=== PATIENT | male | born 1955 | race Caucasian/White ===

== ENCOUNTER 2018-10-28 11:25 | Inpatient (IN) | payer MEDICARE ==
[2018-10-28] MEDS ORDERED: NITROGLYCERIN SL TABS 0.4 MG TAB SUBLINGUAL STA ×2 (11:56)
[2018-10-28] MEDS ORDERED: NITROGLYCERIN OINT 1 INCH/GM PACKET TOPICAL STA (11:56)
--- NOTE | 2018-10-28 12:12 | ED ---
General Adult HPI - General Chief complaint: Shortness of Breath Stated complaint: SOB, High BP Time Seen by Provider: 10/28/18 11:25 Source: patient, RN notes reviewed Mode of arrival: ambulatory Limitations: no limitations - History of Present Illness Initial comments: This is a 62-year-old male who presents emergency Department who presents emergency department stating over the last 2 weeks he has had some chest pressure with shortness of breath. Patient states it usually occurs while he is doing some activity and usually subsides when he stops activity. Patient decided to go to [facility] today to have them evaluate him and they sent him over to us because he is having significantly high blood pressure and chest pressure. Patient currently has no symptoms. Patient states he has no radiation of the chest pressure ever patient denies any diaphoretic episodes of her patient denies any nausea vomiting ever. Patient denies any recent fever chills. Patient denies abdominal pain patient denies nausea vomiting diarrhea. There is no calf tenderness no leg swelling - Related Data Home Medications Medication Instructions Recorded Confirmed Aspirin EC [Ecotrin Low Dose] 162 mg PO DAILY PRN 10/28/18 10/28/18 Allergies Allergy/AdvReac Type Severity Reaction Status Date / Time No Known Allergies Allergy Verified 10/28/18 11:43 Review of Systems ROS Statement: Those systems with pertinent positive or pertinent negative responses have been documented in the HPI. ROS Other: All systems not noted in ROS Statement are negative. Past Medical History Past Medical History: Hyperlipidemia, Hypertension History of Any Multi-Drug Resistant Organisms: None Reported Past Surgical History: No Surgical Hx Reported Past Psychological History: No Psychological Hx Reported Smoking Status: Former smoker Past Alcohol Use History: Occasional Past Drug Use History: None Reported General Exam - General Exam Comments Initial Comments: GENERAL: Patient is well-developed and well-nourished. Patient is nontoxic and well- hydrated and is in mild distress. ENT: Neck is soft and supple. No significant lymphadenopathy is noted. Oropharynx is clear. Moist mucous membranes. Neck has full range of motion without eliciting any pain. EYES: The sclera were anicteric and conjunctiva were pink and moist. Extraocular movements were intact and pupils were equal round and reactive to light. Eyelids were unremarkable. PULMONARY: Unlabored respirations. Good breath sounds bilaterally. No audible rales rhonchi or wheezing was noted. CARDIOVASCULAR: Irregular rate and rhythm ABDOMEN: Soft and nontender with normal bowel sounds. No palpable organomegaly was noted. There is no palpable pulsatile mass. SKIN: Skin is clear with no lesions or rashes and otherwise unremarkable. NEUROLOGIC: Patient is alert and oriented x3. Cranial nerves II through XII are grossly intact. Motor and sensory are also intact. Normal speech, volume and content. Symmetrical smile. MUSCULOSKELETAL: Normal extremities with adequate strength and full range of motion. No lower extremity swelling or edema. No calf tenderness. LYMPHATICS: No significant lymphadenopathy is noted PSYCHIATRIC: Normal psychiatric evaluation. Limitations: no limitations Course Vital Signs 10/28/18 10/28/18 10/28/18 11:27 12:12 12:49 Temperature 97.8 F Pulse Rate 96 116 H 99 Respiratory 22 18 16 Rate Blood Pressure 212/109 190/126 179/117 O2 Sat by Pulse 92 L 97 96 Oximetry 10/28/18 10/28/18 13:00 13:30 Temperature Pulse Rate 98 98 Respiratory 18 18 Rate Blood Pressure 187/116 164/96 O2 Sat by Pulse 97 96 Oximetry Medical Decision Making - Medical Decision Making EKG shows atrial fibrillation at 100 bpm QRS is 84 QT interval 06 QTC is 394. Patient's EKG shows no ST segment elevation or depression. Chest x-ray shows patient has mild congestive heart failure Because of the patient's new atrial fib we started him on heparin. Also the patient's troponin was mildly elevated. Patient had some CHF psychiatric the patient Lasix as well. [facility] I wrote admitting orders I consult cardiology I continued the heparin Lasix aspirin and Nitropaste on the floor. - Lab Data Result diagrams: 10/28/18 12:13 10/28/18 12:13 Lab Results 10/28/18 10/28/18 10/28/18 Range/Units 12:13 12:13 12:13 WBC 9.5 (3.8-10.6) k/uL RBC 4.95 (4.30-5.90) m/uL Hgb 14.9 (13.0-17.5) gm/dL Hct 44.1 (39.0-53.0) % MCV 89.1 (80.0-100.0) fL MCH 30.1 (25.0-35.0) pg MCHC 33.8 (31.0-37.0) g/dL RDW 16.2 H (11.5-15.5) % Plt Count 199 (150-450) k/uL Neutrophils % 82 % Lymphocytes % 11 % Monocytes % 4 % Eosinophils % 1 % Basophils % 0 % Neutrophils # 7.8 H (1.3-7.7) k/uL Lymphocytes # 1.1 (1.0-4.8) k/uL Monocytes # 0.4 (0-1.0) k/uL Eosinophils # 0.1 (0-0.7) k/uL Basophils # 0.0 (0-0.2) k/uL Poikilocytosis Slight Anisocytosis Slight PT 9.8 (9.0-12.0) sec INR 0.9 (<1.2) APTT 23.6 (22.0-30.0) sec Sodium 137 (137-145) mmol/L Potassium 4.5 (3.5-5.1) mmol/L Chloride 104 (98-107) mmol/L Carbon Dioxide 24 (22-30) mmol/L Anion Gap 9 mmol/L BUN 21 H (9-20) mg/dL Creatinine 1.22 (0.66-1.25) mg/dL Est GFR (CKD-EPI)AfAm 72 (>60 ml/min/1.73 sqM) Est GFR (CKD-EPI)NonAf 63 (>60 ml/min/1.73 sqM) Glucose 187 H (74-99) mg/dL Calcium 8.9 (8.4-10.2) mg/dL Magnesium 1.8 (1.6-2.3) mg/dL Total Bilirubin 1.6 H (0.2-1.3) mg/dL AST 44 (17-59) U/L ALT 69 (21-72) U/L Alkaline Phosphatase 87 (38-126) U/L Troponin I (0.000-0.034) ng/mL Total Protein 6.7 (6.3-8.2) g/dL Albumin 4.0 (3.5-5.0) g/dL 10/28/18 Range/Units 12:13 WBC (3.8-10.6) k/uL RBC (4.30-5.90) m/uL Hgb (13.0-17.5) gm/dL Hct (39.0-53.0) % MCV (80.0-100.0) fL MCH (25.0-35.0) pg MCHC (31.0-37.0) g/dL RDW (11.5-15.5) % Plt Count (150-450) k/uL Neutrophils % % Lymphocytes % % Monocytes % % Eosinophils % % Basophils % % Neutrophils # (1.3-7.7) k/uL Lymphocytes # (1.0-4.8) k/uL Monocytes # (0-1.0) k/uL Eosinophils # (0-0.7) k/uL Basophils # (0-0.2) k/uL Poikilocytosis Anisocytosis PT (9.0-12.0) sec INR (<1.2) APTT (22.0-30.0) sec Sodium (137-145) mmol/L Potassium (3.5-5.1) mmol/L Chloride (98-107) mmol/L Carbon Dioxide (22-30) mmol/L Anion Gap mmol/L BUN (9-20) mg/dL Creatinine (0.66-1.25) mg/dL Est GFR (CKD-EPI)AfAm (>60 ml/min/1.73 sqM) Est GFR (CKD-EPI)NonAf (>60 ml/min/1.73 sqM) Glucose (74-99) mg/dL Calcium (8.4-10.2) mg/dL Magnesium (1.6-2.3) mg/dL Total Bilirubin (0.2-1.3) mg/dL AST (17-59) U/L ALT (21-72) U/L Alkaline Phosphatase (38-126) U/L Troponin I 0.061 H* (0.000-0.034) ng/mL Total Protein (6.3-8.2) g/dL Albumin (3.5-5.0) g/dL Critical Care Time Critical Care Time: Yes Total Critical Care Time: 35 Disposition Clinical Impression: New onset a-fib, Elevated troponin, Pulmonary edema, Hypertensive urgency Disposition: ADMITTED IP TO THIS [facility] Referrals: None,Stated [Primary Care Provider] - 1-2 days Time of Disposition: 14:04
[2018-10-28] MEDS: ASPIRIN 81 MG PO STA ×2 (12:14→12:15)
[2018-10-28 12:31] LABS: INR 0.9 (<1.2); Partial Thromboplastin Time 23.6 sec (22.0-30.0); Prothrombin Time 9.8 sec (9.0-12.0)
[2018-10-28 12:32] LABS: Calcium 8.9 mg/dL (8.4-10.2); Magnesium 1.8 mg/dL (1.6-2.3); Potassium 4.5 mmol/L (3.5-5.1); Total Bilirubin 1.6 mg/dL (0.2-1.3); Total Protein 6.7 g/dL (6.3-8.2)
[2018-10-28 12:45] LABS: Anisocytosis Slight; Basophils % (A) 0 %; Eosinophils # (A) 0.1 k/uL (0-0.7); Eosinophils % (A) 1 %; HCT 44.1 % (39.0-53.0); HGB 14.9 gm/dL (13.0-17.5); Lymphocytes # (A) 1.1 k/uL (1.0-4.8); Lymphocytes % (A) 11 %; MCH 30.1 pg (25.0-35.0); MCHC 33.8 g/dL (31.0-37.0); MCV 89.1 fL (80.0-100.0); Mean Platelet Volume 8.8; Monocytes # (A) 0.4 k/uL (0-1.0); Monocytes % (A) 4 %; Neutrophils # (A) 7.8 k/uL (1.3-7.7); Neutrophils % (A) 82 %; Platelet Count 199 k/uL (150-450); Poikilocytosis Slight; RBC 4.95 m/uL (4.30-5.90); RDW 16.2 % (11.5-15.5); WBC 9.5 k/uL (3.8-10.6)
--- NOTE | 2018-10-28 12:59 | XR ---
EXAMINATION TYPE: XR chest 2V DATE OF EXAM: 10/28/2018 COMPARISON: None HISTORY: 62-year-old male with shortness of breath and chest pain TECHNIQUE: PA and lateral views FINDINGS: Heart borderline enlarged. Diffuse interstitial and vascular prominence. Small effusions on the later al view. No velia consolidation seen at this time. IMPRESSION: 1. Borderline cardiomegaly with diffuse interstitial changes. Correlate for mild to moderate CHF with pulmonary vascular congestion. 2. Small bilateral pleural effusions with adjacent atelectasis and/or consolidation seen on the later al view.
[2018-10-28] MEDS ORDERED: HEPARIN SODIUM,PORCINE 5,000 UNIT/ML 1 ML VIAL IV ONE (13:31)
[2018-10-28] MEDS: HEPARIN SOD,PORK IN 0.45% NACL 25,000 UNIT in 0.45% NACL 1 250ML.BAG IV SCH (14:02)
[2018-10-28] MEDS ORDERED: FUROSEMIDE 10 MG/ML 2 ML VIAL IV STA (14:04)
[2018-10-28] MEDS ORDERED: NITROGLYCERIN SL TABS 0.4 MG TAB SUBLINGUAL PRN (14:14)
[2018-10-28] MEDS ORDERED: hydrALAZINE HCL 20 MG/ML 1 ML VIAL IVP STA (14:30)
[2018-10-28] MEDS ORDERED: LABETALOL 5 MG/ML VIAL MDV IVP STA (16:03)
[2018-10-28] MEDS ORDERED: LABETALOL SYRINGE 5 MG/ML IVP STA (16:09)
[2018-10-28] MEDS ORDERED: ASPIRIN 81 MG PO PRN (16:45)
[2018-10-28] MEDS ORDERED: LABETALOL 5 MG/ML VIAL MDV IVP PRN (16:46)
--- NOTE | 2018-10-28 17:06 | P.HPIM ---
History of Present Illness Chief Complaint: Chest pain and shortness of breath This very pleasant 62-year-old gentleman with no significant past medical history comes in with above-mentioned complaint. Patient says that he is having symptoms of chest pain and shortness of breath with exertion for the past 2 weeks and would get better when he rests. Today he was carrying his garbage cans out when he noticed that his having the symptoms again. He went into [facility] today. [facility] sent him over here. The patient at this time does not complain of any chest pain. He says that her shortness of breath is better. He does not complain of any radiation of the chest pain. He does not complain of any lightheadedness or dizziness does not complain of any abdominal pain, nausea and vomiting, or diarrhea constipation, no tingling numbness on his extremities, no itch or rash. ER course-EKG was done which showed A. fib with controlled rate. His blood pressure was in 150s initially but when he came to the floor his blood pressure wasn't 200s. Otherwise stable. Labwork was done which showed WBC 9.5 hemoglobin of 14.9 platelets 199 sodium 137 potassium 4.5 B1 21 creatinine 1.22 chest x-ray shows possible CHF. Patient was given Lasix, started on heparin drip and admitted to the hospitalist service a further evaluation and management Review of Systems All systems: negative Past Medical History Past Medical History: GERD/Reflux, Hyperlipidemia, Hypertension, Osteoarthritis (OA) Additional Past Medical History / Comment(s): Pt states he was told in the past by a physician that he has "black looking" lungs, arhtritis in bilateral thumbs and R knee. History of Any Multi-Drug Resistant Organisms: None Reported Past Surgical History: Tonsillectomy Additional Past Surgical History / Comment(s): Colonoscopy Past Anesthesia/Blood Transfusion Reactions: No Reported Reaction Smoking Status: Former smoker - Past Family History Father Family Medical History: No Reported History Additional Family Medical History / Comment(s): Father was healthy and lived to be 92 yrs old. Mother Family Medical History: COPD, Dementia, Eye Disorder Additional Family Medical History / Comment(s): Glaucoma Medications and Allergies Home Medications Medication Instructions Recorded Confirmed Type Aspirin EC [Ecotrin Low Dose] 162 mg PO DAILY PRN 10/28/18 10/28/18 History Allergies Allergy/AdvReac Type Severity Reaction Status Date / Time No Known Allergies Allergy Verified 10/28/18 11:43 Physical Exam Vitals: Vital Signs Temp Pulse Resp BP Pulse Ox 10/28/18 15:30 85 20 164/101 96 10/28/18 15:16 92 20 148/102 95 10/28/18 14:51 96 22 178/104 95 10/28/18 14:22 98 22 154/130 95 10/28/18 14:15 97 21 156/113 96 10/28/18 13:30 98 18 164/96 96 10/28/18 13:00 98 18 187/116 97 10/28/18 12:49 99 16 179/117 96 10/28/18 12:12 116 H 18 190/126 97 10/28/18 11:27 97.8 F 96 22 212/109 92 L Intake and Output 10/28/18 10/28/18 10/28/18 06:59 14:59 22:59 Other: # Voids 1 1 Weight 108.862 kg On exam, alert and oriented x3. HEENT: Conjunctivae normal. eyes normal. NECK: No JVD. No thyroid enlargement. No LNs CARDIOVASCULAR: S1, S2 muffled. No murmur RESPIRATION: Breath sounds diminished in the bases. No rhonchi or crackles. No bronchial breathing. ABDOMEN: Soft, nontender . No guarding. no masses palpable. No ascites, No hepatosplenomegaly.Bowel sounds heard. LEGS: No edema. no swelling NERVOUS SYSTEM: Cranial N 2-12 grossly normal. Moves all 4 limbs. No focal d eficits. No sensory deficit. No signs of cerebellar dysfucntion. Skin: no ulcer no rash Results CBC & Chem 7: 10/28/18 12:13 10/28/18 12:13 Labs: Abnormal Lab Results - Last 24 Hours (Table) 10/28/18 10/28/18 10/28/18 Range/Units 12:13 12:13 12:13 RDW 16.2 H (11.5-15.5) % Neutrophils # 7.8 H (1.3-7.7) k/uL BUN 21 H (9-20) mg/dL Glucose 187 H (74-99) mg/dL Total Bilirubin 1.6 H (0.2-1.3) mg/dL Troponin I 0.061 H* (0.000-0.034) ng/mL Thrombosis Risk Factor Assmnt - Choose All That Apply Any of the Below Risk Factors Present?: Yes Each Factor Represents 1 point: Heart failure (<1month), Obesity (BMI >25) Other Risk Factors: Yes Each Risk Factor Represents 2 Points: Age 61-74 years Other congenital or acquired thrombophilia - If yes, enter type in comment: No Thrombosis Risk Factor Assessment Total Risk Factor Score: 4 Thrombosis Risk Factor Assessment Level: Moderate Risk Assessment and Plan Assessment: - New-onset A. fib - CHF exacerbation - Hypertensive urgency - Chest pain need to rule out cardiac cause Plan - We'll admit the patient to selective unit - We'll continue heparin - Patient blood pressures were high above 200s at the time examination. We'll give him a stat dose of labetalol. - We'll start him on lisinopril and metoprolol - Cardiology is consulted for the expert recommendations - We will order for echocardiogram - We'll monitor troponin levels - DVT and GI prophylaxis - We'll order for lab work in the morning - Expected length of stay is more than 2 midnights - Patient is full code Time with Patient: Less than 30
[2018-10-28] MEDS: NITROGLYCERIN OINT 1 INCH/GM PACKET TOPICAL SCH (18:35)
[2018-10-28] MEDS: LISINOPRIL 10 MG TAB PO SCH (18:35)
[2018-10-28 20:53] LABS: Glucose,Whole Blood 145 mg/dL (75-99)
[2018-10-28] MEDS: METOPROLOL TARTRATE 25 MG TAB PO SCH (21:48)
[2018-10-29] MEDS: NITROGLYCERIN OINT 1 INCH/GM PACKET TOPICAL SCH ×5 (00:07→23:15)
[2018-10-29 03:42] LABS: HCT 39.9 % (39.0-53.0); HGB 13.6 gm/dL (13.0-17.5); MCH 30.6 pg (25.0-35.0); MCHC 34.1 g/dL (31.0-37.0); Mean Platelet Volume 8.4; Platelet Count 198 k/uL (150-450); RBC 4.44 m/uL (4.30-5.90); RDW 15.1 % (11.5-15.5); WBC 8.9 k/uL (3.8-10.6)
[2018-10-29 03:53] LABS: Calcium 8.9 mg/dL (8.4-10.2); Potassium 3.8 mmol/L (3.5-5.1)
[2018-10-29] MEDS: HEPARIN SOD,PORK IN 0.45% NACL 25,000 UNIT in 0.45% NACL 1 250ML.BAG IV SCH ×2 (08:42→23:15)
[2018-10-29] MEDS: LISINOPRIL 10 MG TAB PO SCH (08:43)
[2018-10-29] MEDS: FUROSEMIDE 10 MG/ML 2 ML VIAL IV SCH (08:43)
[2018-10-29] MEDS: ASPIRIN 325 MG TAB PO SCH (08:43)
[2018-10-29] MEDS: METOPROLOL TARTRATE 25 MG TAB PO SCH ×2 (08:43→20:05)
--- NOTE | 2018-10-29 10:50 | ECHOF ---
Referral Reason:Chest pain MEASUREMENTS -------- HEIGHT: 177.8 cm WEIGHT: 108.9 kg BP: 146/83 RVIDd: 3.5 cm (< 3.3) IVSd: 1.6 cm (0.6 - 1.1) LVIDd: 5.0 cm (3.9 - 5.3) LVPWd: 1.6 cm (0.6 - 1.1) IVSs: 2.1 cm LVIDs: 4.0 cm LVPWs: 2.1 cm LA Diam: 3.7 cm (2.7 - 3.8) LAESV Index (A-L): 54.46 ml/m Ao Diam: 3.5 cm (2.0 - 3.7) AV Cusp: 1.4 cm (1.5 - 2.6) MV EXCURSION: 19.783 mm (> 18.000) MV EF SLOPE: 118 mm/s (70 - 150) EPSS: 0.9 cm AV maxP.96 mmHg AV meanP.73 mmHg AR PHT: 767 ms FINDINGS -------- Atrial fibrillation. This was a technically difficult study with suboptimal views. The left ventricular size is normal. There is moderate concentric left ventricular hypertrophy. O verall left ventricular systolic function is moderate-severely impaired with, an EF between 30 - 35 % . Basal lateral LV wall motion is hypokinetic. Mid lateral LV wall motion is hypokinetic. Api jatin lateral LV wall motion is hypokinetic. The right ventricle is mildly enlarged. LA is severely dilated >40 ml/m2 The right atrium is normal in size. 3 ml of Lumason was utilized for enhancement of images. Aneurysmal Interatrial septum. There is moderate aortic valve sclerosis. There is mild aortic regurgitation. There is mild aorti c stenosis present. Peak/mean gradient across the Aortic Valve is 25.96mmHg / 12.73mmHg. The mitral valve leaflets are mildly thickened. Mild mitral annular calcification present. Mild m itral regurgitation is present. The peak and mean MV gradients are 12.73mmHg 3.90mmHg as measured by doppler. The tricuspid valve was not well visualized. The pulmonic valve was not well visualized. The aortic root size is normal. Normal inferior vena cava with normal inspiratory collapse consistent with estimated right atrial pre ssure of 5 mmHg. There is no pericardial effusion. CONCLUSIONS -------- 1. Atrial fibrillation. 2. This was a technically difficult study with suboptimal views. 3. The left ventricular size is normal. 4. There is moderate concentric left ventricular hypertrophy. 5. Overall left ventricular systolic function is moderate-severely impaired with, an EF between 30 - 35 %. 6. Basal lateral LV wall motion is hypokinetic. 7. Mid lateral LV wall motion is hypokinetic. 8. Apical lateral LV wall motion is hypokinetic. 9. The right ventricle is mildly enlarged. 10. LA is severely dilated >40 ml/m2 11. The right atrium is normal in size. 12. 3 ml of Lumason was utilized for enhancement of images. 13. Aneurysmal Interatrial septum. 14. There is moderate aortic valve sclerosis. 15. There is mild aortic regurgitation. 16. There is mild aortic stenosis present. 17. Peak/mean gradient across the Aortic Valve is 25.96mmHg / 12.73mmHg. 18. The mitral valve leaflets are mildly thickened. 19. Mild mitral annular calcification present. 20. Mild mitral regurgitation is present. 21. The peak and mean MV gradients are 12.73mmHg 3.90mmHg as measured by doppler. 22. The tricuspid valve was not well visualized. 23. The pulmonic valve was not well visualized. 24. The aortic root size is normal. 25. Normal inferior vena cava with normal inspiratory collapse consistent with estimated right atrial pressure of 5 mmHg. 26. There is no pericardial effusion. FUNDRAISING ASSISTANT: Joy Munson RDCS
--- NOTE | 2018-10-29 12:25 | P.PN ---
Subjective This very pleasant 62-year-old gentleman with no significant past medical history comes in with above-mentioned complaint. Patient says that he is having symptoms of chest pain and shortness of breath with exertion for the past 2 weeks and would get better when he rests. Today he was carrying his garbage cans out when he noticed that his having the symptoms again. He went into [facility] today. [email or web address] urgent care sent him over here. The patient at this time does not complain of any chest pain. He says that her shortness of breath is better. He does not complain of any radiation of the chest pain. He does not complain of any lightheadedness or dizziness does not complain of any abdominal pain, nausea and vomiting, or diarrhea constipation, no tingling numbness on his extremities, no itch or rash. On 10/29/2018 Patient does not complain of any chest pain. Says any shortness of breath is better. No abdominal pain, nausea and vomiting, or diarrhea constipation. Objective - Vital Signs Vital signs: Vital Signs Temp 97.4 F L 10/29/18 07:40 Pulse 65 10/29/18 07:40 Resp 18 10/29/18 07:40 BP 148/99 10/29/18 07:40 Pulse Ox 98 10/29/18 07:40 Intake & Output 10/28/18 10/29/18 10/29/18 18:59 06:59 18:59 Intake Total 360 182.578 782.159 Output Total 300 1300 Balance 60 182.578 -517.841 Weight 108.862 kg 109.1 kg Intake: IV 132 Heparin Sod,Pork in 0.45% 132 NaCl 25,000 unit In 0.45 % NaCl 1 250ml.bag @ 9.19 UNITS/KG/HR 10.004 mls/ hr IV .Q24H [facility] Rx#: [id number] Intake, IV Titration 182.578 50.159 Amount Heparin Sod,Pork in 0.45% 182.578 50.159 NaCl 25,000 unit In 0.45 % NaCl 1 250ml.bag @ 9.19 UNITS/KG/HR 10.004 mls/ hr IV .Q24H [facility] Rx#: [id number] Oral 360 600 Output: Urine 300 1300 Other: Voiding Method Urinal Toilet # Voids 1 2 - Exam On exam, alert and oriented x3. HEENT: Conjunctivae normal. eyes normal. NECK: No JVD. No thyroid enlargement. No LNs CARDIOVASCULAR: S1, S2 muffled. No murmur RESPIRATION: Breath sounds diminished in the bases. No rhonchi or crackles. No bronchial breathing. ABDOMEN: Soft, nontender . No guarding. no masses palpable. No ascites, No hepatosplenomegaly.Bowel sounds heard. LEGS: Trace pitting edema edema. no swelling NERVOUS SYSTEM: Cranial N 2-12 grossly normal. Moves all 4 limbs. No focal deficits. No sensory deficit. No signs of cerebellar dysfucntion. Skin: no ulcer no rash - Labs CBC & Chem 7: 10/29/18 03:16 10/29/18 03:16 Labs: Abnormal Lab Results - Last 24 Hours (Table) 10/28/18 10/28/18 10/28/18 Range/Units 12:13 12:13 12:13 RDW 16.2 H (11.5-15.5) % Neutrophils # 7.8 H (1.3-7.7) k/uL APTT (22.0-30.0) sec BUN 21 H (9-20) mg/dL Creatinine (0.66-1.25) mg/dL Glucose 187 H (74-99) mg/dL POC Glucose (mg/dL) (75-99) mg/dL Total Bilirubin 1.6 H (0.2-1.3) mg/dL Troponin I 0.061 H* (0.000-0.034) ng/mL Triglycerides (<150) mg/dL Cholesterol (<200) mg/dL LDL Cholesterol, Calc (0-99) mg/dL HDL Cholesterol (40-60) mg/dL 10/28/18 10/28/18 10/29/18 Range/Units 17:57 20:51 00:30 RDW (11.5-15.5) % Neutrophils # (1.3-7.7) k/uL APTT (22.0-30.0) sec BUN (9-20) mg/dL Creatinine (0.66-1.25) mg/dL Glucose (74-99) mg/dL POC Glucose (mg/dL) 145 H (75-99) mg/dL Total Bilirubin (0.2-1.3) mg/dL Troponin I 0.073 H* 0.085 H* (0.000-0.034) ng/mL Triglycerides (<150) mg/dL Cholesterol (<200) mg/dL LDL Cholesterol, Calc (0-99) mg/dL HDL Cholesterol (40-60) mg/dL 10/29/18 10/29/18 Range/Units 03:16 10:11 RDW (11.5-15.5) % Neutrophils # (1.3-7.7) k/uL APTT 31.8 H (22.0-30.0) sec BUN 21 H (9-20) mg/dL Creatinine 1.36 H (0.66-1.25) mg/dL Glucose 139 H (74-99) mg/dL POC Glucose (mg/dL) (75-99) mg/dL Total Bilirubin (0.2-1.3) mg/dL Troponin I (0.000-0.034) ng/mL Triglycerides 201 H (<150) mg/dL Cholesterol 208 H (<200) mg/dL LDL Cholesterol, Calc 135 H (0-99) mg/dL HDL Cholesterol 33 L (40-60) mg/dL Assessment and Plan Assessment: - New-onset A. fib - CHF exacerbation - Hypertensive urgency - Chest pain need to rule out cardiac cause Plan - Patient is nothing by mouth. - Patient troponins are elevated. His ECHO shows ef of 30-35%. Awiting further recs from cardio - Continue lisinopril and metoprolol which was started yesterday - DVT and GI prophylaxis - Continue heparin drip - We'll continue to monitor the patient Time with Patient: Greater than 30
[2018-10-29] MEDS ORDERED: HEPARIN SODIUM,PORCINE 5,000 UNIT/ML 1 ML VIAL IV PRN (13:13)
--- NOTE | 2018-10-29 14:31 | P.CRDCN ---
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 For the last 2 weeks, he has been experiencing intermittent episodes of chest discomfort, as a pressure/discomfort across the chest, with some radiation to his left arm. Beside that he has been experiencing progressive exertional dyspnea. No dizziness or lightheadedness. And no syncope. No feeling of heart racing or heart fluttering. Because chest discomfort and shortness of breath where gettin g worse and decided to come to the emergency room. In the ER he was found to be in atrial fibrillation which is known to him. Beside that the cardiac enzymes were checked and came in to be abnormal. The EKG showed atrial fibrillation with diffuse nonspecific ST or T-wave abnormalities. More importantly, the echocardiogram revealed cardiomyopathy with EF around 35% with wall motion abnormalities concerning for severe underlying coronary artery disease. Also the chest x-ray showed findings consistent with CHF. Currently the patient is on heparin IV, beside that he is on Lasix IV. He is on aspirin as well as metoprolol. I did recommend proceeding with coronary angiogram. The procedure in details was discussed with him. Past Medical History Past Medical History: GERD/Reflux, Hyperlipidemia, Hypertension, Osteoarthritis (OA) Additional Past Medical History / Comment(s): Pt states he was told in the past by a physician that he has "black looking" lungs, arhtritis in bilateral thumbs and R knee. History of Any Multi-Drug Resistant Organisms: None Reported Past Surgical History: Tonsillectomy Additional Past Surgical History / Comment(s): Colonoscopy Past Anesthesia/Blood Transfusion Reactions: No Reported Reaction Smoking Status: Former smoker - Past Family History Father Family Medical History: No Reported History Additional Family Medical History / Comment(s): Father was healthy and lived to be 92 yrs old. Mother Family Medical History: COPD, Dementia, Eye Disorder Additional Family Medical History / Comment(s): Glaucoma Medications and Allergies Home Medications Medication Instructions Recorded Confirmed Type Aspirin EC [Ecotrin Low Dose] 162 mg PO DAILY PRN 10/28/18 10/28/18 History Allergies Allergy/AdvReac Type Severity Reaction Status Date / Time No Known Allergies Allergy Verified 10/28/18 11:43 Physical Exam Vitals: Vital Signs Temp Pulse Pulse Resp BP BP Pulse Ox 10/29/18 07:40 97.4 F L 65 18 148/99 98 10/29/18 05:44 98.0 F 82 16 146/83 96 10/29/18 00:05 78 18 166/86 96 10/28/18 21:20 98.1 F 82 16 157/88 97 10/28/18 17:20 160/90 10/28/18 16:00 98.0 F 118 H 20 204/103 96 10/28/18 15:30 85 20 164/101 96 10/28/18 15:16 92 20 148/102 95 10/28/18 14:51 96 22 178/104 95 Intake and Output 10/28/18 10/29/18 10/29/18 22:59 06:59 14:59 Intake Total 436.197 106.381 825.704 Output Total 300 1300 Balance 136.197 106.381 -474.296 Intake: IV 132 Heparin Sod,Pork in 0.45% 132 NaCl 25,000 unit In 0.45 % NaCl 1 250ml.bag @ 9.19 UNITS/KG/HR 10.004 mls/ hr IV .Q24H [facility] Rx#: [id number] Intake, IV Titration 76.197 106.381 93.704 Amount Heparin Sod,Pork in 0.45% 76.197 106.381 93.704 NaCl 25,000 unit In 0.45 % NaCl 1 250ml.bag @ 9.19 UNITS/KG/HR 10.004 mls/ hr IV .Q24H [facility] Rx#: [id number] Oral 360 600 Output: Urine 300 1300 Other: Voiding Method Toilet # Voids 1 2 Weight 109.1 kg - Constitutional General appearance: no acute distress - Respiratory Respiratory: bilateral: rales - Cardiovascular Rhythm: irregularly irregular Heart sounds: normal: S1, S2 Abnormal Heart Sounds: systolic murmur Results 10/29/18 03:16 10/29/18 03:16 Cardiac Enzymes 10/28/18 10/29/18 Range/Units 17:57 00:30 Troponin I 0.073 H* 0.085 H* (0.000-0.034) ng/mL Coagulation 10/28/18 10/29/18 10/29/18 Range/Units 18:00 03:16 10:11 APTT 25.8 27.9 31.8 H (22.0-30.0) sec Lipids 10/29/18 Range/Units 03:16 Triglycerides 201 H (<150) mg/dL Cholesterol 208 H (<200) mg/dL HDL Cholesterol 33 L (40-60) mg/dL CBC 10/29/18 Range/Units 03:16 WBC 8.9 (3.8-10.6) k/uL RBC 4.44 (4.30-5.90) m/uL Hgb 13.6 (13.0-17.5) gm/dL Hct 39.9 (39.0-53.0) % Plt Count 198 (150-450) k/uL Comprehensive Metabolic Panel 10/29/18 Range/Units 03:16 Sodium 139 (137-145) mmol/L Potassium 3.8 (3.5-5.1) mmol/L Chloride 104 (98-107) mmol/L Carbon Dioxide 26 (22-30) mmol/L BUN 21 H (9-20) mg/dL Creatinine 1.36 H (0.66-1.25) mg/dL Glucose 139 H (74-99) mg/dL Calcium 8.9 (8.4-10.2) mg/dL Current Medications Generic Name Dose Route Start Last Admin Trade Name Freq PRN Reason Stop Dose Admin Aspirin 325 mg 10/29/18 09:00 10/29/18 08:43 Aspirin PO 325 mg DAILY [facility] Administration Aspirin 162 mg 10/28/18 16:45 Aspirin PO DAILY PRN Pain Furosemide 20 mg 10/29/18 09:00 10/29/18 08:43 Lasix IV 20 mg DAILY [facility] Administration Heparin Sodium (Porcine) 0 unit 10/29/18 13:13 10/29/18 14:06 Heparin IV 4,000 unit PER PROTOCOL PRN Administration Low PTT Protocol Heparin Sodium/Sodium Chloride 250 mls @ 10.004 mls/hr 10/28/18 13:45 10/29/18 11:20 25,000 unit/ Sodium Chloride IV 1,800.44 units/kg/hr .Q24H [facility] 1,960 mls/hr Titration Protocol 9.19 UNITS/KG/HR Labetalol HCl 10 mg 10/28/18 16:46 Trandate IVP Q6H PRN Blood Pressure - High Lisinopril 10 mg 10/28/18 17:00 10/29/18 08:43 Zestril PO 10 mg DAILY [facility] Administration Metoprolol Tartrate 25 mg 10/28/18 21:00 10/29/18 08:43 Lopressor PO 25 mg BID DEVEN Administration Nitroglycerin 1 inch 10/28/18 18:00 10/29/18 11:26 Nitro-Bid Oint TOPICAL 1 inch Q6HR [facility] Administration Nitroglycerin 0.4 mg 10/28/18 14:14 Nitrostat SUBLINGUAL Q5M PRN Chest Pain Intake and Output 10/28/18 10/29/18 10/29/18 22:59 06:59 14:59 Intake Total 436.197 106.381 825.704 Output Total 300 1300 Balance 136.197 106.381 -474.296 Intake: IV 132 Heparin Sod,Pork in 0.45% 132 NaCl 25,000 unit In 0.45 % NaCl 1 250ml.bag @ 9.19 UNITS/KG/HR 10.004 mls/ hr IV .Q24H [facility] Rx#: [id number] Intake, IV Titration 76.197 106.381 93.704 Amount Heparin Sod,Pork in 0.45% 76.197 106.381 93.704 NaCl 25,000 unit In 0.45 % NaCl 1 250ml.bag @ 9.19 UNITS/KG/HR 10.004 mls/ hr IV .Q24H [facility] Rx#: [id number] Oral 360 600 Output: Urine 300 1300 Other: Voiding Method Toilet # Voids 1 2 Weight 109.1 kg 10/29/18 03:16 10/29/18 03:16 Assessment and Plan Assessment: Assessment #1 atrial fibrillation with RVR. This is new diagnosed as the patient #2 acute non-ST deviation myocardial infarction #3 congestive heart failure exacerbation secondary to systolic dysfunction #4 cardiomyopathy #5 mild aortic stenosis Plan #1 continue the current medical regimen including heparin IV, aspirin, metoprolol #2 add statin to the current medical regimen #3 continue the Lasix IV #4 continue monitor the kidney function and electrolytes #6 proceed with coronary angiogram in the next 24 hours. Thank you for allowing us participate in his care
[2018-10-29] MEDS: ATORVASTATIN 80 MG TAB PO SCH (20:05)
[2018-10-30] MEDS ORDERED: ACETAMINOPHEN TAB 325 MG TAB PO PRN (05:13)
[2018-10-30] MEDS: NITROGLYCERIN OINT 1 INCH/GM PACKET TOPICAL SCH ×4 (06:07→22:12)
[2018-10-30 06:48] LABS: HCT 41.8 % (39.0-53.0); HGB 13.7 gm/dL (13.0-17.5); MCH 29.3 pg (25.0-35.0); MCHC 32.6 g/dL (31.0-37.0); MCV 89.8 fL (80.0-100.0); Mean Platelet Volume 8.5; Platelet Count 201 k/uL (150-450); Poikilocytosis Slight; RBC 4.66 m/uL (4.30-5.90); RDW 15.7 % (11.5-15.5); WBC 7.6 k/uL (3.8-10.6)
[2018-10-30 07:21] LABS: Potassium 4.4 mmol/L (3.5-5.1)
[2018-10-30] MEDS: LISINOPRIL 10 MG TAB PO SCH (08:50)
[2018-10-30] MEDS: METOPROLOL TARTRATE 25 MG TAB PO SCH ×2 (08:50→19:58)
[2018-10-30] MEDS: FUROSEMIDE 10 MG/ML 2 ML VIAL IV SCH (08:50)
[2018-10-30] MEDS: ASPIRIN 325 MG TAB PO SCH (08:50)
[2018-10-30] MEDS ORDERED: ALPRAZolam 0.5 MG TAB PO PRN (12:12)
[2018-10-30] MEDS ORDERED: ALPRAZolam 0.25 MG TAB PO PRN (12:12)
[2018-10-30] MEDS ORDERED: ASPIRIN 325 MG TAB PO STA (12:12)
[2018-10-30] MEDS ORDERED: ATORVASTATIN 80 MG TAB PO STA (12:12)
[2018-10-30] MEDS ORDERED: SODIUM CHLORIDE 0.9% 1,000 ML in EMPTY BAG 1 BAG IV ONE (12:12)
[2018-10-30] MEDS ORDERED: NITROGLYCERIN SL TABS 0.4 MG TAB SUBLINGUAL PRN (12:12)
[2018-10-30] MEDS ORDERED: IV FLUID CONTINUATION 900 ML IV ONE (14:29)
--- NOTE | 2018-10-30 14:33 | P.PN ---
Subjective This very pleasant 62-year-old gentleman with no significant past medical history comes in with above-mentioned complaint. Patient says that he is having symptoms of chest pain and shortness of breath with exertion for the past 2 weeks and would get better when he rests. Today he was carrying his garbage cans out when he noticed that his having the symptoms again. He went into [facility] [employer] today. [facility] urgent care sent him over here. The patient at this time does not complain of any chest pain. He says that her shortness of breath is better. He does not complain of any radiation of the chest pain. He does not complain of any lightheadedness or dizziness does not complain of any abdominal pain, nausea and vomiting, or diarrhea constipation, no tingling numbness on his extremities, no itch or rash. On 10/29/2018 Patient does not complain of any chest pain. Says any shortness of breath is better. No abdominal pain, nausea and vomiting, or diarrhea constipation. On 10/30/2018 Says that he's feeling fine. No chest pain or racing heart He does not complain of any cough or shortness of breath He does not complain of any abdominal pain, nausea and vomiting, or diarrhea constipation, He does not complain of any lightheadedness or dizziness Objective - Vital Signs Vital signs: Vital Signs Temp 98.2 F 10/30/18 11:13 Pulse 66 10/30/18 11:51 Resp 18 10/30/18 11:51 BP 134/85 10/30/18 11:13 Pulse Ox 96 10/30/18 11:13 Intake & Output 10/29/18 10/30/18 10/30/18 18:59 06:59 18:59 Intake Total 1254.159 100 Output Total 1300 1300 Balance -45.841 100 -1300 Weight 107.4 kg Intake: IV 132 Heparin Sod,Pork in 0.45% 132 NaCl 25,000 unit In 0.45 % NaCl 1 250ml.bag @ 9.19 UNITS/KG/HR 10.004 mls/ hr IV .Q24H [facility] Rx#: [id number] Intake, IV Titration 300.159 Amount Heparin Sod,Pork in 0.45% 300.159 NaCl 25,000 unit In 0.45 % NaCl 1 250ml.bag @ 9.19 UNITS/KG/HR 10.004 mls/ hr IV .Q24H [facility] Rx#: [id number] Oral 822 100 Output: Urine 1300 1300 Other: Voiding Method Urinal # Voids 2 2 - Exam On exam, alert and oriented x3. HEENT: Conjunctivae normal. eyes normal. NECK: No JVD. No thyroid enlargement. No LNs CARDIOVASCULAR: S1, S2 muffled. No murmur RESPIRATION: Breath sounds diminished in the bases. No rhonchi or crackles. No bronchial breathing. ABDOMEN: Soft, nontender . No guarding. no masses palpable. No ascites, No hepatosplenomegaly.Bowel sounds heard. LEGS: Trace pitting edema edema. no swelling NERVOUS SYSTEM: Cranial N 2-12 grossly normal. Moves all 4 limbs. No focal deficits. No sensory deficit. No signs of cerebellar dysfucntion. Skin: no ulcer no rash - Labs CBC & Chem 7: 10/30/18 06:19 10/30/18 06:19 Labs: Abnormal Lab Results - Last 24 Hours (Table) 10/29/18 10/30/18 10/30/18 Range/Units 17:05 06:19 06:19 RDW 15.7 H (11.5-15.5) % APTT 66.8 H (22.0-30.0) sec BUN 22 H (9-20) mg/dL Creatinine 1.33 H (0.66-1.25) mg/dL Glucose 148 H (74-99) mg/dL 10/30/18 Range/Units 06:19 RDW (11.5-15.5) % APTT 51.0 H (22.0-30.0) sec BUN (9-20) mg/dL Creatinine (0.66-1.25) mg/dL Glucose (74-99) mg/dL Assessment and Plan Assessment: - New-onset A. fib - CHF exacerbation - Hypertensive urgency - Chest pain need to rule out cardiac cause Plan -The pressure better controlled - Continue heparin drip - Continue IV Lasix - Patient probably having a catH - We'll continue to follow the patient Time with Patient: Less than 30
[2018-10-30] MEDS ORDERED: MIDAZOLAM (PF) 2 MG/2 ML VIAL IV ONE (14:50)
[2018-10-30] MEDS ORDERED: LIDOCAINE 1% INJ 10MG/ML (20 ML MDV) SQ ONE (14:50)
[2018-10-30] MEDS: VERAPAMIL SYRINGE (5 MG/10 ML) INTRAARTER ONE ×2 (14:52→15:00)
[2018-10-30] MEDS ORDERED: IOPAMIDOL-370 125ML BTL INJ ONE (15:00)
[2018-10-30] MEDS ORDERED: RX INFO: IV CONTRAST WAS GIVEN 1 EACH MISC MISCELLANE PRN (15:10)
[2018-10-30] MEDS ORDERED: SODIUM CHLORIDE 0.9% 1,000 ML IV SCH (15:15)
[2018-10-30] MEDS: ATORVASTATIN 80 MG TAB PO SCH (19:58)
--- NOTE | 2018-10-30 21:55 | CC ---
CARDIAC CATHETERIZATION REPORT DATE OF SERVICE: October 30, 2018 PERFORMING PHYSICIAN: Wesley Apple MD, vessel welder. PROCEDURE PERFORMED: 1. Selective right and left coronary angiogram. 2. Left heart catheterization. INDICATION: This is a pleasant 62-year-old gentleman with a past medical history significant for hypertension as well as dyslipidemia who stopped taking all his medications, presented to the hospital with symptoms of chest discomfort and shortness of breath and was diagnosed with atrial fibrillation, which was new to him. He also ruled in for acute non ST elevation myocardial infarction. Beside that, the echocardiogram revealed severe cardiomyopathy with EF around 35% with wall motion abnormalities suggestive of severe underlying coronary artery disease. Because of that, a heart catheterization was advised. APPROACH: Right radial artery. COMPLICATION: None. LEVEL OF SEDATION: Moderate with sedation length of 15 minutes. PROCEDURE DESCRIPTION: After obtaining an informed consent, the patient was brought to cardiac laboratory clerk. The right radial artery was cannulated using micropuncture technique, the micropuncture wire passed easily. Then I placed a 6-Luxembourgish sheath in the right radial artery. After that, I did selective right and left coronary angiogram using JR4 and JL3.5 catheters. The left heart catheterization was performed using 6-Luxembourgish pigtail catheter. The procedure was completed without any complications. At the beginning, the patient was given 2 mg of verapamil IA. SELECTIVE CORONARY ANGIOGRAM: 1. The right coronary artery is a large caliber vessel and it is a dominant vessel. The RCA has mild disease in the proximal portion, but normal in the mid and distal portion. Bifurcates into PDA and PLV branches both appeared to be angiographically normal. 2. The left main is angiographically normal. It bifurcates into the left circumflex, ramus intermedius, and left anterior descending artery. 3. The left circumflex is a large caliber vessel. It is a codominant vessel. The proximal circumflex appeared to be angiographically normal and gives rise into first OM branch which has mild disease only. The mid circumflex appeared to be normal and the circumflex distally is normal as well. The circumflex distally bifurcates into PDA and PLV branches, both appeared to be angiographically normal. 4. The ramus intermedius is a large caliber vessel and angiographically normal. 5. The LAD: The proximal LAD appeared to have mild disease only. The mid LAD appeared to have have a lesion appeared to be in the range of 40% to 50% The LAD distally appeared to be angiographically normal. The LAD gives rise into 2 diagonal branches appeared to be angiographically normal. HEMODYNAMICS: The left ventricular end-diastolic pressure appeared to be 8-12 mmHg without significant gradient across the aortic valve. CONCLUSION: Intermediate disease involving the mid left anterior descending artery. POSTPROCEDURE MANAGEMENT: 1. Maximize medical treatment for the cardiomyopathy. 2. Aggressive cholesterol control regarding the CAD. 3. Follow up with the patient. MMDAJA / IJN: [id number] /
[2018-10-31] MEDS: NITROGLYCERIN OINT 1 INCH/GM PACKET TOPICAL SCH (04:32)
[2018-10-31 06:56] LABS: HCT 41.5 % (39.0-53.0); HGB 13.9 gm/dL (13.0-17.5); MCH 30.1 pg (25.0-35.0); MCHC 33.5 g/dL (31.0-37.0); Mean Platelet Volume 8.3; Platelet Count 187 k/uL (150-450); Poikilocytosis Slight; RBC 4.61 m/uL (4.30-5.90); RDW 15.6 % (11.5-15.5); WBC 7.7 k/uL (3.8-10.6)
[2018-10-31 07:07] LABS: Calcium 9.2 mg/dL (8.4-10.2); Potassium 4.5 mmol/L (3.5-5.1)
[2018-10-31 08:52] VITALS: BP 148/99; PULSE 82; RESP 18; TEMP 98.7
[2018-10-31] MEDS: ASPIRIN 325 MG TAB PO SCH (08:53)
[2018-10-31] MEDS: FUROSEMIDE 10 MG/ML 2 ML VIAL IV SCH (08:53)
[2018-10-31] MEDS: LISINOPRIL 10 MG TAB PO SCH (08:54)
[2018-10-31] MEDS: METOPROLOL TARTRATE 25 MG TAB PO SCH (08:54)
[2018-10-31] MEDS ORDERED: APIXABAN 5 MG TAB PO SCH (09:15)
--- NOTE | 2018-10-31 10:44 | P.PN ---
Subjective Progress Note Date: 10/31/18 This very pleasant 62-year-old gentleman with no significant past medical history comes in with above-mentioned complaint. Patient says that he is having symptoms of chest pain and shortness of breath with exertion for the past 2 weeks and would get better when he rests. Today he was carrying his garbage cans out when he noticed that his having the symptoms again. He went into [facility] today. [facility] urgent care sent him over here. The patient at this time does not complain of any chest pain. He says that her shortness of breath is better. He does not complain of any radiation of the chest pain. He does not complain of any lightheadedness or dizziness does not complain of any abdomi nal pain, nausea and vomiting, or diarrhea constipation, no tingling numbness on his extremities, no itch or rash, patient was found here initially to be in atrial fibrillation. He underwent a cardiac catheterization yesterday which revealed LAD disease and medical therapy was advised. Echocardiogram with Doppler study revealed an ejection fraction of 30-35%. And examined this morning, he's been up ambulating in the hallway and feels well. Denies any chest pain in his breathing has been stable. Blood pressure 135/90 heart rate in the 80s, 96% on room air. White blood cell count 7.7, hemoglobin 13.9, platelet count 187. Sodium 141, potassium 4.5, BUN 21 and creatinine 1.3. IV heparin will be discontinued and patient will be started on Eliquis 5 mg one tablet by mouth twice a day. He is also on a baby aspirin along with Lipitor 80, lisinopril 10 mg, metoprolol 25 mg twice a day and we will add Aldactone to his medication regime. He may be able to be discharged home from our per spective. Objective - Vital Signs Vital signs: Vital Signs Temp 98.7 F 10/31/18 08:00 Pulse 82 10/31/18 08:00 Resp 18 10/31/18 08:00 BP 148/99 10/31/18 08:00 Pulse Ox 95 10/31/18 08:00 Intake & Output 10/30/18 10/31/18 10/31/18 18:59 06:59 18:59 Intake Total 340 Output Total 1300 500 Balance -960 -500 Weight 106.9 kg Intake: IV 100 Oral 240 Output: Urine 1300 500 Other: Voiding Method Toilet Urinal # Voids 2 - Exam PHYSICAL EXAMINATION: GENERAL: 42-year-old gentleman in no acute distress at the time of my examination HEENT: Head is atraumatic, normocephalic. Pupils equal, round. Sclera anicteric. Conjunctiva are clear. Mucous membranes of the mouth are moist. Neck is supple. There is no elevated jugular venous pressure. No carotid bruit is heard. HEART EXAMINATION: S1 and S2 irregularly irregular CHEST EXAMINATION: Lungs are clear to auscultation and precussion. No chest wall tenderness is noted on palpation or with deep breathing. ABDOMEN: Soft, nontender. Bowel sounds are heard. No organomegaly noted. EXTREMITIES: 2+ peripheral pulses with no evidence of peripheral edema and no calf tenderness noted. Right radial site clean and dry, good distal pulse. NEUROLOGIC patient is awake, alert and oriented 3 . - Labs CBC & Chem 7: 10/31/18 06:08 10/31/18 06:08 Labs: Abnormal Lab Results - Last 24 Hours (Table) 10/31/18 10/31/18 Range/Units 06:08 06:08 RDW 15.6 H (11.5-15.5) % BUN 21 H (9-20) mg/dL Creatinine 1.35 H (0.66-1.25) mg/dL Glucose 113 H (74-99) mg/dL Assessment and Plan Plan: Assessment and plan #1 atrial fibrillation with RVR. Chronic persistent. This is new diagnosed as the patient #2 acute non-ST deviation myocardial infarction, status post cardiac catheterization which revealed LAD disease, medical therapy advised #3 congestive heart failure exacerbation secondary to systolic dysfunction #4 nonischemic cardiomyopathy #5 mild aortic stenosis Plan From cardiology's perspective, we will discontinue the IV heparin and start the patient on Eliquis. He may be able to be discharged home today to follow-up with Dr. Copeland in the office post discharge. DNP note has been reviewed, I agree with a documented findings and plan of care. Patient was seen and examined.
--- NOTE | 2018-10-31 12:47 | P.DS ---
Providers Date of admission: 10/28/18 14:14 Expected date of discharge: 10/31/18 Attending physician: Wilbert Elam MD Consults: 10/28/18 14:14 Consult Physician Urgent Consulting Provider: [facility] Consult Reason/Comments: Atrial fibrillation, pulmonary edema, hypertensive urgency Do you want consulting provider notified?: Yes Primary care physician: Stated None Hospital Course: Discharge summary - New-onset A. fib - CHF exacerbation with systolic dysfunction - Hypertensive urgency - Chest pain need to rule out cardiac cause Hospital course This very pleasant 62-year-old gentleman with no significant past medical history comes in with above-mentioned complaint. Patient says that he is having symptoms of chest pain and shortness of breath with exertion for the past 2 weeks and would get better when he rests. Today he was carrying his garbage cans out when he noticed that his having the symptoms again. He went into [facility] today. [facility] urgent care sent him over here. The patient at this time does not complain of any chest pain. He says that her shortness of breath is better. He does not complain of any radiation of the chest pain. He does not complain of any lightheadedness or dizziness does not complain of any abdominal pain, nausea and vomiting, or diarrhea constipation, no tingling numbness on his extremities, no itch or rash. Patient was started on heparin drip. His blood pressure was initially high so he was started on lisinopril metoprolol. His blood pressure improved after that. He was also continued on IV Lasix. His echo showed ejection fraction of 30-35%. He was taken for a cath which showed intermediate disease involving the mid left LAD. He was advised medical therapy. On 10/31/2018 Patient did not complain of any chest pain, racing heart No cough no shortness of breath On exam, alert and oriented x3. HEENT: Conjunctivae normal. eyes normal. NECK: No JVD. No thyroid enlargement. No LNs CARDIOVASCULAR: S1, S2 muffled. No murmur RESPIRATION: Breath sounds diminished in the bases. No rhonchi or crackles. No bronchial breathing. ABDOMEN: Soft, nontender . No guarding. no masses palpable. No ascites, No hepatosplenomegaly.Bowel sounds heard. LEGS: No edema. no swelling NERVOUS SYSTEM: Cranial N 2-12 grossly normal. Moves all 4 limbs. No focal deficits. No sensory deficit. No signs of cerebellar dysfucntion. Skin: no ulcer no rash Joints: No active swelling. No inflammation. Lymphatic system. No LN neck axilla or groin. Patient will be discharged. He is to follow with his primary care doctor patient does not have a primary care doctor he was urged to find a primary care doctor and follow with him. Patient was also asked to follow with Dr. Copeland as an outpatient in a week. Patient Condition at Discharge: Fair Plan - Discharge Summary Discharge Rx Participant: No New Discharge Prescriptions: New Spironolactone [Aldactone] 25 mg PO DAILY #30 tab Aspirin 81 mg PO DAILY #30 chew Apixaban [Eliquis] 5 mg PO BID #60 tab Atorvastatin [Lipitor] 80 mg PO HS #30 tab Metoprolol Tartrate [Lopressor] 25 mg PO BID #60 tab Lisinopril [Zestril] 10 mg PO DAILY #30 tab Discontinued Aspirin EC [Ecotrin Low Dose] 162 mg PO DAILY PRN PRN Reason: Pain Discharge Medication List Apixaban [Eliquis] 5 mg PO BID #60 tab 10/31/18 [Rx] Aspirin 81 mg PO DAILY #30 chew 10/31/18 [Rx] Atorvastatin [Lipitor] 80 mg PO HS #30 tab 10/31/18 [Rx] Lisinopril [Zestril] 10 mg PO DAILY #30 tab 10/31/18 [Rx] Metoprolol Tartrate [Lopressor] 25 mg PO BID #60 tab 10/31/18 [Rx] Spironolactone [Aldactone] 25 mg PO DAILY #30 tab 10/31/18 [Rx] Follow up Appointment(s)/Referral(s): None,Stated [Primary Care Provider] - 1-2 days Activity/Diet/Wound Care/Special Instructions: pt has no prescription coverage, will need free 30 day coupon for anti- coagulants
[2018-11-01] MEDS ORDERED: SPIRONOLACTONE 25 MG TAB PO SCH (09:00)
[2018-11-01] MEDS ORDERED: ASPIRIN 81 MG PO SCH (09:00)
--- NOTE | 2018-11-01 09:14 | CDI ---
Documentation Clarification Form Date: 11/01/2018 8:31:15 AM From: Pennie Gaspar Phone: If you have a question about this query, please contact Yeimi Davidson, Riffler Tender at [phone] between 8am and 5pm. Admit Date: 10/28/2018 2:14:00 PM Patient Name: Hood Reynolds Visit Number: [id number] Discharge Date: 10/31/2018 1:53:00 PM ATTENTION: The Clinical Documentation Specialists (CDI) and [facility] Coding Staff appreciate your assistance in clarifying documentation. Please respond to the clarification below the line at the bottom and electronically sign. The CDI & [facility] Coding staff will review the response and follow-up if needed. Please note: Queries are made part of the Legal Health Record. If you have any questions, please contact the author of this message via ITS. Dr. Wilbert Elam Ruled in for NSTEMI is documented in Cath Report. NSTEMI not carried through to [facility]. Please clarify if patient had NSTEMI or was this ruled out.: Patient History/Risk Factors: severe cardiomyopathy, CAD, HTN cardiovascular disease with CHF systolic, atrial fib Troponin: .061, .073, .085 EKG Results: Severe cardiomyopathy, atrial fib, aortic stenosis Treatment: Cardiac cath Consult: Cardiology consult In order to capture the severity of condition and necessary documentation specificity, please clarify: NSTEMI NSTEMI ruled out Unable to determine Other Condition, please specify _Unable to determine MTDD
== END 2018-10-31 13:53 | disposition home or self-care (01) | DRG 287 ==
LOC: EC 11:25 → 3SCARD 14:14
PROVIDERS: ADMIT Internal Medicine; ATTEND Internal Medicine
PROC: B2111ZZ Fluoroscopy of Multiple Coronary Arteries using Low Osmolar Contrast (ICD-10-PCS; 2018-10-30)
PROC: B2151ZZ Fluoroscopy of Left Heart using Low Osmolar Contrast (ICD-10-PCS; 2018-10-30)
PROC: 4A023N7 Measurement of Cardiac Sampling and Pressure, Left Heart, Percutaneous Approach (ICD-10-PCS; principal; 2018-10-30 14:36)
DX: I11.0 Hypertensive heart disease with heart failure (principal); I50.23 Acute on chronic systolic (congestive) heart failure; I42.9 Cardiomyopathy, unspecified; I16.0 Hypertensive urgency; E78.5 Hyperlipidemia, unspecified; I25.10 Atherosclerotic heart disease of native coronary artery without angina pectoris; I48.91 Unspecified atrial fibrillation; K21.9 Gastro-esophageal reflux disease without esophagitis; Z79.82 Long term (current) use of aspirin; Z79.899 Other long term (current) drug therapy; Z82.5 Family history of asthma and other chronic lower respiratory diseases; Z87.891 Personal history of nicotine dependence; Z82.0 Family history of epilepsy and other diseases of the nervous system; Z83.511 Family history of glaucoma; I35.0 Nonrheumatic aortic (valve) stenosis
CPT/HCPCS: 36415; 71046; 80048; 80053; 80061; 83735; 84484; 85025; 85027; 85610; 85730; 93005; 93306; 93458; 94760; 96365; 96366; 96375; 96376; 99291

== ENCOUNTER 2019-06-10 08:19 | Day surgery (SDC) | payer MEDICARE ==
[2019-06-09 08:26] VITALS: BMI 33.8
[~2019-06-10 08:19] MED LIST: LACTATED RINGERS 1,000 ML IV SCH
[2019-06-10 08:38] VITALS: RESP 18; TEMP 97.8
[2019-06-10] MEDS ORDERED: LIDOCAINE 1% 20 ML VIAL (10MG/ML) FOR IV START INTRADERMA ONE (08:41)
[2019-06-10] MEDS ORDERED: LACTATED RINGERS 1,000 ML IV ONE (08:41)
[2019-06-10] MEDS ORDERED: PROPOFOL 10 MG/ML 20 ML VIAL IV ONE (09:11)
[2019-06-10] MEDS ORDERED: LIDOCAINE 1% INJ 10MG/ML (20 ML MDV) ONE (09:11)
--- NOTE | 2019-06-10 09:16 | P.GSHP ---
History of Present Illness H&P Date: 06/10/19 Chief Complaint: colon cancer screening today for colonoscopy. Last colonoscopy 8 years ago. Family history of colon cancer in his father and his brother. No bowel related complaints. Past Medical History Past Medical History: GERD/Reflux, Hyperlipidemia, Hypertension, Myocardial Infarction ([place]), Osteoarthritis ([place]) Additional Past Medical History / Comment(s): Pt states he was told in the past by a physician that he has "black looking" lungs, Last Myocardial Infarction Date:: 10/2018 History of Any Multi-Drug Resistant Organisms: None Reported Past Surgical History: Heart Catheterization, Tonsillectomy Additional Past Surgical History / Comment(s): Colonoscopy Past Anesthesia/Blood Transfusion Reactions: No Reported Reaction Smoking Status: Former smoker - Past Family History Father Family Medical History: No Reported History Additional Family Medical History / Comment(s): Father was healthy and lived to be 92 yrs old. Mother Family Medical History: COPD, Dementia, Eye Disorder Additional Family Medical History / Comment(s): Glaucoma Medications and Allergies Home Medications Medication Instructions Recorded Confirmed Type Apixaban [Eliquis] 5 mg PO BID #60 tab 10/31/18 06/09/19 Rx Aspirin 81 mg PO DAILY #30 chew 10/31/18 06/09/19 Rx Atorvastatin [Lipitor] 80 mg PO HS #30 tab 10/31/18 06/09/19 Rx Lisinopril [Zestril] 10 mg PO DAILY #30 tab 10/31/18 06/09/19 Rx Metoprolol Tartrate [Lopressor] 25 mg PO BID #60 tab 10/31/18 06/09/19 Rx Spironolactone [Aldactone] 25 mg PO DAILY #30 tab 10/31/18 06/09/19 Rx Allergies Allergy/AdvReac Type Severity Reaction Status Date / Time No Known Allergies Allergy Verified 06/09/19 08:23 Surgical - Exam Vital Signs Temp Pulse Resp BP Pulse Ox 97.8 F 75 18 174/92 99 06/10/19 08:38 06/10/19 08:38 06/10/19 08:38 06/10/19 08:38 06/10/19 08:38 Physical exam: General: Well-developed, well-nourished HEENT: Normocephalic, sclerae nonicteric Abdomen: Nontender, nondistended Extremities: No edema Neuro: Alert and oriented Assessment and Plan (1) Colon cancer screening Narrative/Plan: Will proceed with colonoscopy Current Visit: Yes Status: Acute Code(s): Z12.11 - ENCOUNTER FOR SCREENING FOR MALIGNANT NEOPLASM OF COLON SNOMED Code(s): 563598795
--- NOTE | 2019-06-10 09:37 | P.PCN ---
Date of Procedure: 06/10/19 Procedure(s) Performed: PREOPERATIVE DIAGNOSIS: Colon cancer screening, family history of colon cancer POSTOPERATIVE DIAGNOSIS: Diverticulosis PROCEDURE: Colonoscopy ANESTHESIA: MAC SURGEON: Mendel Ruff M.D. SPECIMENS: None ENDOSCOPIC PROCEDURE: The patient was placed on the endoscopy table in the left decubitus position. The Olympus colonoscope was inserted into the anus and passed under direct visualization to the base of the cecum. The appendiceal orifice was visualized. From that point the scope was slowly withdrawn inspecting all surfaces carefully. There were no neoplastic inflammatory or polypoid lesions throughout the cecum, ascending, transverse, descending, sigmoid and rectum. There was moderate left-sided diverticulosis noted. Digital rectal examination was normal. The patient was taken to the recovery room in stable condition per anesthesia guidelines. RECOMMENDATIONS: Increase fiber. Follow-up colonoscopy 5 years.
[2019-06-10 09:57] VITALS: BP 118/81; PULSE 88
== END 2019-06-10 10:11 | disposition home or self-care (01) ==
LOC: ORWHC2ENDO 08:19
PROVIDERS: ATTEND Surgery
DX: Z12.11 Encounter for screening for malignant neoplasm of colon (principal); K57.30 Diverticulosis of large intestine without perforation or abscess without bleeding; Z80.0 Family history of malignant neoplasm of digestive organs; K21.9 Gastro-esophageal reflux disease without esophagitis; E78.5 Hyperlipidemia, unspecified; I25.10 Atherosclerotic heart disease of native coronary artery without angina pectoris; I10 Essential (primary) hypertension; I25.2 Old myocardial infarction; M19.90 Unspecified osteoarthritis, unspecified site; Z87.891 Personal history of nicotine dependence; Z82.5 Family history of asthma and other chronic lower respiratory diseases; Z83.511 Family history of glaucoma; Z81.8 Family history of other mental and behavioral disorders; Z79.01 Long term (current) use of anticoagulants; Z79.82 Long term (current) use of aspirin; Z79.899 Other long term (current) drug therapy; I48.91 Unspecified atrial fibrillation
CPT/HCPCS: J2001; J2704; G0105

== ENCOUNTER → 2020-01-13 | Outpatient (CLI) | payer MEDICARE ==
[2020-01-13 16:31] LABS: Chol/HDL Ratio 3.41; LDL Cholesterol,Calculated 55.2 mg/dL (0.0-131.0); VLDL Calculation 33.8 mg/dL (5.00-40.00)
== END | disposition home or self-care (01) ==
LOC: LABWHC1 07:38
PROVIDERS: ATTEND Internal Medicine Interventional Cardiology
DX: E78.2 Mixed hyperlipidemia (principal)
CPT/HCPCS: 36415; 80061; 84450; 84460

== ENCOUNTER → 2020-01-18 | Outpatient (CLI) | payer MEDICARE ==
--- NOTE | 2020-01-18 15:39 | CT ---
EXAMINATION TYPE: CT angio chest DATE OF EXAM: 01/18/2020 2:38 PM COMPARISON: Chest radiograph 10/28/2018 HISTORY: follow up thoracic aortic aneurysm, abnormal echo CT DLP: 855 mGycm Automated exposure control for dose reduction was used. CONTRAST: CTA scan of the thorax is performed without and with IV Contrast, patient injected with 80 mL of Isov ue 370, thoracic aortic aneurysm protocol. MIP images are created and reviewed. FINDINGS: LUNGS: The lungs are grossly clear, there is no concerning parenchymal mass or nodule identified. No focal consolidation There is no pleural effusion or pneumothorax seen. The tracheobronchial tree is patent. MEDIASTINUM: There is satisfactory enhancement of the thoracic aorta. The descending thoracic aorta m easures 3.4 cm, with no velia aneurysmal dilatation. No thoracic aortic dissection. There are no grea ter than 1 cm hilar or mediastinal lymph nodes. Cardiac size normal. Calcified coronary artery disea se. No pericardial effusion is seen. OTHER: Degenerative changes of the thoracic spine. IMPRESSION: NO THORACIC AORTIC ANEURYSM OR AORTIC DISSECTION.
== END | disposition home or self-care (01) ==
LOC: RADCTMAIN 13:12
PROVIDERS: ATTEND Internal Medicine Interventional Cardiology
DX: I71.2 Thoracic aortic aneurysm, without rupture (principal)
CPT/HCPCS: 82565; 84520; 71275; 36415; Q9967

== ENCOUNTER 2020-12-23 19:26 | Emergency (ER) | payer MEDICARE ==
[2020-12-23 19:30] VITALS: BP 167/83; PULSE 75; RESP 18; TEMP 98.1
[2020-12-23] MEDS ORDERED: LIDOCAINE 5% PATCH TOPICAL STA (19:42)
[2020-12-23] MEDS ORDERED: KETOROLAC 15 MG/ML 1 ML VIAL IM STA (19:42)
[2020-12-23] MEDS ORDERED: CYCLOBENZAPRINE 10MG STARTER 3 TAB BTL PO STA (19:42)
--- NOTE | 2020-12-23 19:44 | ED ---
Back Pain HPI - General Chief Complaint: Back Pain/Injury Stated Complaint: Back Pain Source: patient Limitations: no limitations - History of Present Illness Initial Comments: 65 year-old male patient presents to the emergency department for evaluation of right low back pain that started about three days ago. Patient states he has been bending forward in the garden doing a lot of work recently and he thinks this is contributing. He reports a general ache with occasional sharp pains with movement. Denies any radiation down the legs. Denies any numbness, tingling, or weakness to the lower extremities. Denies any saddle anesthesia or loss of bowel or bladder control. Denies any abdominal pain, hematuria, dysuria, urinary frequency, urinary urgency. Denies any nausea or vomiting. Denies fever or chills. Denies constipation or diarrhea. States he does have history of intermittent back pain that stemmed from lifting his often while she was ill. Patient denies any recent rash, cough, shortness of breath, chest pain, nausea, vomiting, diarrhea, constipation, dizziness, headache, visual changes, or any other complaints. - Related Data Previous Rx's Medication Instructions Recorded Apixaban [Eliquis] 5 mg PO BID #60 tab 10/31/18 Aspirin 81 mg PO DAILY #30 chew 10/31/18 Atorvastatin [Lipitor] 80 mg PO HS #30 tab 10/31/18 Metoprolol Tartrate [Lopressor] 25 mg PO BID #60 tab 10/31/18 Spironolactone [Aldactone] 25 mg PO DAILY #30 tab 10/31/18 lisinopriL [Zestril] 10 mg PO DAILY #30 tab 10/31/18 Cyclobenzaprine [Flexeril] 10 mg PO TID #15 tab 12/23/20 Lidocaine 5% Patch [Lidoderm] 1 patch TOPICAL DAILY #30 patch 12/23/20 Naproxen [EC-Naprosyn] 500 mg PO BID PRN #30 tablet. 12/23/20 Allergies Allergy/AdvReac Type Severity Reaction Status Date / Time No Known Allergies Allergy Verified 12/23/20 19:30 Review of Systems ROS Statement: Those systems with pertinent positive or pertinent negative responses have been documented in the HPI. ROS Other: All systems not noted in ROS Statement are negative. Past Medical History Past Medical History: GERD/Reflux, Hyperlipidemia, Hypertension, Myocardial Infarction ([place]), Osteoarthritis ([place]) Additional Past Medical History / Comment(s): Pt states he was told in the past by a physician that he has "black looking" lungs, Last Myocardial Infarction Date:: 10/2018 History of Any Multi-Drug Resistant Organisms: None Reported Past Surgical History: Heart Catheterization, Tonsillectomy Additional Past Surgical History / Comment(s): Colonoscopy Past Anesthesia/Blood Transfusion Reactions: No Reported Reaction Past Psychological History: No Psychological Hx Reported Smoking Status: Never smoker Past Alcohol Use History: Occasional Past Drug Use History: None Reported - Past Family History Father Family Medical History: No Reported History Additional Family Medical History / Comment(s): Father was healthy and lived to be 92 yrs old. Mother Family Medical History: COPD, Dementia, Eye Disorder Additional Family Medical History / Comment(s): Glaucoma General Exam Limitations: no limitations General appearance: alert, in no apparent distress, other (Physical well-devel oped, well-nourished adult male patient in no acute distress. Vital signs upon presentation temperature 98.1F, pulse 75, respirations 18, blood pressure 167/83, pulse ox 97% on room air.) Respiratory exam: Present: normal lung sounds bilaterally. Absent: respiratory distress, wheezes, rales, rhonchi, stridor Cardiovascular Exam: Present: regular rate, normal rhythm, normal heart sounds. Absent: systolic murmur, diastolic murmur, rubs, gallop, clicks GI/Abdominal exam: Present: soft, normal bowel sounds. Absent: distended, tenderness, guarding, rebound, rigid Extremities exam: Present: normal inspection, full ROM, normal capillary refill, other (Skin to the lower extremities is pink, warm, dry. Cap refill less than 3 seconds. Pedal posttibial pulses are 2+ and equal bilaterally.). Absent: tenderness, pedal edema, joint swelling, calf tenderness Neurological exam: Present: alert, oriented X3, CN II-XII intact, other (Strength in the lower extremities is 5/5.) Psychiatric exam: Present: normal affect, normal mood Skin exam: Present: warm, dry, intact, normal color. Absent: rash Course Vital Signs 12/23/20 19:27 Temperature 98.1 F Pulse Rate 75 Respiratory 18 Rate Blood Pressure 167/83 O2 Sat by Pulse 97 Oximetry Medical Decision Making - Medical Decision Making 65-year-old male patient presents to the emergency department today for evaluation of right low back pain that started 3 days ago. Physical examination is unremarkable. No spinal tenderness noted. No skin changes over the back. No CVA tenderness. He is afebrile with normal vital signs, mildly elevated blood pressure. He has no concerning symptoms for cauda equina. Symptoms are consistent with mechanical low back pain. He'll be treated with anti- inflammatory, muscle relaxer, and Lidoderm patch. He is instructed to follow-up with primary care physician for recheck in 1-2 days. Return parameters were dis cussed in detail. He verbalizes understanding and agrees with this plan. Case discussed with my attending Dr. Gonsales. Disposition Clinical Impression: Acute low back pain Disposition: HOME SELF-CARE Condition: Good Instructions (If sedation given, give patient instructions): Acute Low Back Pain (ED) Additional Instructions: Medications as directed. Alternate ice and heat to the low back. Avoid prolonged sitting or lying down. Try to walk around at least once per hour. Follow-up with your primary care physician for recheck as soon as possible. Return to the emergency department immediately for any new, worsening, or concerning symptoms. Prescriptions: Naproxen [EC-Naprosyn] 500 mg PO BID PRN #30 tablet. PRN Reason: Pain Cyclobenzaprine [Flexeril] 10 mg PO TID #15 tab Lidocaine 5% Patch [Lidoderm] 1 patch TOPICAL DAILY #30 patch Is patient prescribed a controlled substance at d/c from ED?: No Referrals: Aiden Stapleton MD [Primary Care Provider] - 1-2 days Time of Disposition: 19:44
== END 2020-12-23 19:56 | disposition home or self-care (01) ==
LOC: EC 19:26
DX: M54.5 Low back pain (principal); K21.9 Gastro-esophageal reflux disease without esophagitis; E78.5 Hyperlipidemia, unspecified; I10 Essential (primary) hypertension; I25.2 Old myocardial infarction; M19.90 Unspecified osteoarthritis, unspecified site; Z95.5 Presence of coronary angioplasty implant and graft; Z90.09 Acquired absence of other part of head and neck
CPT/HCPCS: 99283; 96372; J1885

== ENCOUNTER 2022-05-22 07:55 | Emergency (ER) | payer MEDICARE ==
[2022-05-22 08:02] VITALS: PULSE 84; TEMP 98.1
[2022-05-22] MEDS ORDERED: HYDROcodone/APAP 5-325MG 1 EACH TAB PO STA (08:22)
--- NOTE | 2022-05-22 08:27 | ED ---
Lower Extremity Injury HPI - General Chief Complaint: Extremity Injury, Lower Stated Complaint: R ankle injury Time Seen by Provider: 05/22/22 08:16 Source: patient, RN notes reviewed Mode of arrival: ambulatory Limitations: no limitations - History of Present Illness Initial Comments: This is a 66-year-old male who presents to the emergency department with right leg pain. States that a week ago, when he was walking on a sidewalk, he twisted his ankle. He developed pain in both the ankle and the right side of his calf. States that the pain has persisted and he is now also having pain in the hip. He is taking aspirin with no relief, and is also trying to apply ice and heat. He is able to ambulate, but states that he is limping. Denies any fevers, chills, sore throat, cough, dyspnea, chest pain, palpitations, abdominal pain, nausea, vomiting, diarrhea, back pain, or headaches. MD Complaint: ankle injury Onset/Timin -: week(s) Injury: Ankle: Right Worsens With: weight bearing, movement Context: fall Treatments Prior to Arrival: cold therapy, NSAIDS - Related Data Previous Rx's Medication Instructions Recorded Apixaban [Eliquis] 5 mg PO BID #60 tab 10/31/18 Aspirin 81 mg PO DAILY #30 chew 10/31/18 Atorvastatin [Lipitor] 80 mg PO HS #30 tab 10/31/18 Metoprolol Tartrate [Lopressor] 25 mg PO BID #60 tab 10/31/18 Spironolactone [Aldactone] 25 mg PO DAILY #30 tab 10/31/18 lisinopriL [Zestril] 10 mg PO DAILY #30 tab 10/31/18 Cyclobenzaprine [Flexeril] 10 mg PO TID #15 tab 12/23/20 Lidocaine 5% Patch [Lidoderm] 1 patch TOPICAL DAILY #30 patch 12/23/20 Naproxen [EC-Naprosyn] 500 mg PO BID PRN #30 tablet. 12/23/20 Allergies Allergy/AdvReac Type Severity Reaction Status Date / Time No Known Allergies Allergy Verified 05/22/22 07:59 Review of Systems ROS Statement: Those systems with pertinent positive or pertinent negative responses have been documented in the HPI. ROS Other: All systems not noted in ROS Statement are negative. Past Medical History Past Medical History: GERD/Reflux, Hyperlipidemia, Hypertension, Myocardial Infarction ([place]), Osteoarthritis (OA) Additional Past Medical History / Comment(s): Pt states he was told in the past by a physician that he has "black looking" lungs, Last Myocardial Infarction Date:: 10/2018 History of Any Multi-Drug Resistant Organisms: None Reported Past Surgical History: Heart Catheterization, Tonsillectomy Additional Past Surgical History / Comment(s): Colonoscopy Past Anesthesia/Blood Transfusion Reactions: No Reported Reaction Past Psychological History: No Psychological Hx Reported Smoking Status: Never smoker Past Alcohol Use History: Occasional Past Drug Use History: None Reported - Past Family History Father Family Medical History: No Reported History Additional Family Medical History / Comment(s): Father was healthy and lived to be 92 yrs old. Mother Family Medical History: COPD, Dementia, Eye Disorder Additional Family Medical History / Comment(s): Glaucoma General Exam Limitations: no limitations General appearance: alert, in no apparent distress Head exam: Present: atraumatic, normocephalic, normal inspection Respiratory exam: Present: normal lung sounds bilaterally. Absent: respiratory distress, wheezes, rales, rhonchi, stridor Cardiovascular Exam: Present: regular rate, normal rhythm, normal heart sounds. Absent: systolic murmur, diastolic murmur, rubs, gallop, clicks Extremities exam: Present: other (Right calf tenderness and mild tenderness to the right lateral malleolus. There is full range of motion of the right ankle. There is no erythema or swelling, or increased heat. 2+ dorsalis pedis and tibialis posterior pulses. Capillary refill less than 1 second.) Course Vital Signs 05/22/22 05/22/22 07:59 09:51 Temperature 98.1 F Pulse Rate 84 84 Respiratory 16 18 Rate Blood Pressure 172/93 143/81 O2 Sat by Pulse 94 L 96 Oximetry Medical Decision Making - Medical Decision Making This is a 66-year-old male who presents to the emergency department for right ankle pain. X-rays of the right ankle, tib-fib, and hip were obtained. On all x-rays, my interpretation reveals no signs of fractures or dislocations. Advised the patient that if he starts to alter his gait due to the pain and shift his weight to other joints, this can lead to pain elsewhere, such as in the hip. Advised he alternate with Tylenol and ibuprofen for pain relief. Tylenol #3 starter pack was provided, advised he take this sparingly and avoid driving or operating machinery when taking this due to the sedating effects. He was given a Velcro ankle stirrup splint. Advised that he can continue to alternate with ice and heat. Orthopedic follow-up information was provided in the event symptoms do not improve. Return precautions reviewed in depth, the patient is instructed to return to the emergency department with any new, worsening, or concerning symptoms. Patient verbalized understanding. - Radiology Data Radiology results: report reviewed, image reviewed Disposition Clinical Impression: Right ankle sprain Disposition: HOME SELF-CARE Instructions (If sedation given, give patient instructions): Ankle Sprain (ED) Additional Instructions: Return to the emergency department with any new, worsening, or concerning symptoms. Alternate with ibuprofen and Tylenol as needed for pain relief. Take the Tylenol #3, as provided in the starter pack, sparingly when your pain is the most severe. Avoid driving or operating machinery when taking this, as it may be sedating. Use the ankle splint as needed. If symptoms do not improve over the next couple of days, contact orthopedics as listed below. Follow up with your primary care provider in 1-2 days. Is patient prescribed a controlled substance at d/c from ED?: No Referrals: Aiden Stapleton MD [Primary Care Provider] - 1-2 days Rosamaria Ortez DO [Doctor of Osteopathic Medicine] - 1-2 days
--- NOTE | 2022-05-22 09:15 | XR ---
EXAMINATION TYPE: XR Hip Complete RT DATE OF EXAM: 05/22/2022 CLINICAL HISTORY: pain TECHNIQUE: AP and frogleg views of the right hip are obtained. COMPARISON: None. FINDINGS: There is no acute fracture/dislocation evident. The joint space appears within normal li mits. The overlying soft tissue appears unremarkable. IMPRESSION: 1. There is no acute fracture or dislocation. ICD 10 NO FRACTURE, INITIAL EVALUATION
--- NOTE | 2022-05-22 09:16 | XR ---
EXAMINATION TYPE: XR ankle complete RT DATE OF EXAM: 05/22/2022 COMPARISON: NONE HISTORY: Pain TECHNIQUE: Frontal, lateral and oblique images of the right ankle are obtained. COMPARISON: None. FINDINGS: There is no acute fracture/dislocation evident. The joint spaces appear within normal garg its. The overlying soft tissue appears unremarkable. IMPRESSION: There is no acute fracture or dislocation seen.
--- NOTE | 2022-05-22 09:16 | XR ---
EXAMINATION TYPE: XR tibia fibula RT DATE OF EXAM: 05/22/2022 CLINICAL HISTORY: pain TECHNIQUE: AP and lateral images of the right tibia and fibula are obtained. COMPARISON: None. FINDINGS: There is no acute fracture/dislocation evident. The joint spaces appear within normal garg its. The overlying soft tissue appears unremarkable. IMPRESSION: There is no acute fracture or dislocation seen. ICD 10 NO FRACTURE, INITIAL EVALUATION
[2022-05-22] MEDS ORDERED: ACET/COD 300 MG/30 MG STARTER PACK 6 TAB BTL PO STA (09:35)
[2022-05-22 09:53] VITALS: BP 143/81; RESP 18
== END 2022-05-22 09:53 | disposition home or self-care (01) ==
LOC: EC 07:55
DX: S93.401A Sprain of unspecified ligament of right ankle, initial encounter (principal); E78.5 Hyperlipidemia, unspecified; I10 Essential (primary) hypertension; I25.2 Old myocardial infarction; M19.90 Unspecified osteoarthritis, unspecified site; Z79.82 Long term (current) use of aspirin; Z79.1 Long term (current) use of non-steroidal anti-inflammatories (NSAID); Z79.899 Other long term (current) drug therapy; Z79.02 Long term (current) use of antithrombotics/antiplatelets; W50.2XXA Accidental twist by another person, initial encounter; Y93.01 Activity, walking, marching and hiking; Y92.480 Sidewalk as the place of occurrence of the external cause
CPT/HCPCS: 29515; 73502; 99284